=== PATIENT | male | born 1995 | race Caucasian/White ===

== ENCOUNTER 2019-08-22 12:36 | Emergency (ER) | payer SELFPAY ==
[2019-08-22 12:38] VITALS: BP 122/57; PULSE 79; RESP 15; TEMP 37.2; O2SAT 98
--- NOTE | 2019-08-22 13:12 | ED.GENADUL_ITS ---
Discharge Plan Disposition Patient Disposition: HOME Condition: Stable Discharge Details Chief Complaint: Orthopedic Clinical Impression: Laceration of right thumb Primary Care Provider: None,None ED Provider: Ailyn Marshall Home Meds and New Rx's Prescriptions: No Action No Known Home Meds RF: 0 Discharge Instructions Instructions: Laceration (ED) Additional Instructions: Keep wound clean and dry. Be sure to cover wound with dressing if risk of contamination. Keep the wound open to the air if you are resting at home to allow the edges to heal and dry. Once the glue falls off, you can cover the area with antibiotic ointment if you notice any redness or swelling. You will receive a call from care management regarding a follow-up appointment with a primary care doctor to establish care and for wound recheck. Return to the emergency department if you develop any worsening or concerning symptoms such as fever, worsening pain, redness or swelling. Discharge Data Discharge Date/Time-TO BE ENTERED AT DEPARTURE: 08/22/19 14:09 Discharge Physician: Ailyn Marshall Medical Decision Making 23-year-old male who presents with right thumb laceration sustained when caught thumb in a hammer [place] yesterday. Was seen at [facility] and glue applied but no x-ray done, now concerned about possible infection. He noted yellowish discharge. He was given a tetanus yesterday. He denies any known fever or new injury. There is a laceration noted on the volar aspect of right thumb with glue overlying wound. Edges not approximated and skin flap is whitish in discoloration consistent likely with tissue that has been exposed to moisture and not approximated. There are no signs of acute infection including cellulitis or abscess. There is no drainage noted. He has full range of motion of thumb without significant pain. He is neurovascular intact. Patient appears nontoxic. An x-ray was obtained and appears negative. Patient did not want to wait for final read. He was notified to be called with results if positive. Patient placed on care management list to arrange for follow-up appoint with the primary care doctor to establish care. He was advised to return here with any worsening symptoms. Medical Records Medical records reviewed: Yes I reviewed the patient's medical records. Imaging Data Radiologic Study: Radiologist's impression: XR Right Finger(s) Exam date and time: 08/22/2019 1:24 PM Age: 23 years old Clinical indication: Other: Crushed RT thumb, R/O acute FX TECHNIQUE: Imaging protocol: XR Right fingers. Views: Minimum 2 views. COMPARISON: No relevant prior studies available. FINDINGS: Bones/joints: No acute bony injury or malalignment in the right thumb. Soft tissues: Soft tissue swelling and laceration. IMPRESSION: Soft tissue swelling and laceration. HPI General Mode of arrival: ambulatory . Date/Time Provider Initiated Documentation: 08/22/19 12:48 . Limitations to Documentation: no limitations . Information obtained by: patient . History of Present Illness 23 year old M presents to the emergency department with the chief complaint of R thumb laceration/crush injury, Patient started experiencing this day(s) (1) and it has been constant. No relieving factors improve symptom(s), No exacerbating factors reported . Patient notes no other symptoms.. Patient did receive the following treatments prior to arrival, none Related Data Home Medications Medication Instructions Recorded Confirmed Unknown [No Known Home Meds] 08/22/19 08/22/19 Allergies Allergy/AdvReac Type Severity Reaction Status Date / Time ibuprofen AdvReac Intermediate Vomiting Unverified 08/22/19 12:51 General Stated Complaint: Orthopedic ARABELLA: 4 Review of Systems All systems reviewed & are unremarkable except as noted in HPI and below Constitutional Constitutional: Reports as per HPI, Denies chills and Denies fever(s) Eyes Eyes: Denies blurry vision ENT Ears, Nose, Mouth, and Throat: Denies dizziness, Denies sore throat and Denies throat swelling Cardiovascular Cardiovascular: Denies chest pain and Denies dyspnea Respiratory Respiratory: Denies cough and Denies dyspnea Gastrointestinal Gastrointestinal: Denies abdominal pain, Denies diarrhea and Denies vomiting Genitourinary Genitourinary: Denies hematuria and Denies dysuria Musculoskeletal Musculoskeletal: Denies back pain and Denies numbness Integumentary/Breasts Skin/Breast: Denies lesions and Denies rash Neurologic Neurologic: Denies dizziness, Denies focal weakness and Denies numbness Allergic/Immunologic Allergic/Immunologic: Denies throat swelling PFSH Social History Smoking/Tobacco Use Status: Current every day Alcohol Intake: never Drug use: Occasionally Substance use type: marijuana Do you feel safe at home: Yes Do you feel safe in your relationship?: Yes Exam Const General: cooperative, healthy appearing and no acute distress HENMT Head: normal to inspection Mouth: oral mucosae normal Eyes General: appearance normal, both eyes and all related structures Neck Neck: normal visual inspection Resp Effort & Inspection: normal respiratory effort and able to speak in complete sentences Cardio Rate: regular rate Skin General skin exam: no rashes or lesions noted Neuro General: alert, awake and oriented x3 Motor: muscle tone normal throughout and strength 5/5 throughout Sensory Exam: no sensory deficits noted Other: Full range of motion of right thumb at DIP and PIP joint. Extrem Other: Right thumb laceration noted on volar aspect of R thumb, 1.5cm in size, with white discoloration to skin flap. No surrounding erythema, edema, ecchymosis, fluctuance, induration, drainage or bleeding. Psych Appearance: grossly normal Affect: normal affect Course Vital Signs Vital signs: Vital Signs Temperature 99.0 F 08/22/19 12:38 Pulse 79 08/22/19 12:38 Respiratory Rate 15 08/22/19 12:38 Blood Pressure 122/57 L 08/22/19 12:38 Pulse Oximetry 98 08/22/19 12:38 Temperature 99.0 F 08/22/19 12:38 Temperature Source Temporal Artery Scan 08/22/19 12:38 Pulse 79 08/22/19 12:38 Respiratory Rate 15 08/22/19 12:38 Respiratory Effort Non-Labored 08/22/19 12:46 Blood Pressure 122/57 L 08/22/19 12:38 Pulse Oximetry 98 08/22/19 12:38 Oxygen Delivery Method Room Air 08/22/19 12:38 Oxygen Flow Rate 0 08/22/19 12:38 Pain Level 7 08/22/19 12:48
--- NOTE | 2019-08-22 13:24 | DI.RAD_ITS ---
EXAM: XR THUMB RT INDICATION: CRUSHED R THUMB, R/O ACUTE FRACTURE. COMPARISON: LEFT HAND COMPLETE from 12/25/2011 TECHNIQUE: 2D digital imaging was performed. FINDINGS: There is a soft tissue laceration at the ventral aspect of the thumb at the level of the distal phala nx. No foreign body or fracture is seen. Fixation plate is noted in the 4th metacarpal. IMPRESSION: Soft tissue laceration.
--- NOTE | 2019-08-22 14:57 | DI.VRAD_ITS ---
PROCEDURE INFORMATION: Exam: XR Right Finger(s) Exam date and time: 08/22/2019 1:24 PM Age: 23 years old Clinical indication: Other: Crushed RT thumb, R/O acute FX TECHNIQUE: Imaging protocol: XR Right fingers. Views: Minimum 2 views. COMPARISON: No relevant prior studies available. FINDINGS: Bones/joints: No acute bony injury or malalignment in the right thumb. Soft tissues: Soft tissue swelling and laceration. IMPRESSION: Soft tissue swelling and laceration. Dictated and Authenticated by: Javier El MD. Ordering:KEVIN Robertson MD
== END 2019-08-22 14:09 | disposition home or self-care (01) ==
PROVIDERS: Emergency Provider Physician Assistant
DX: S67.01XA Crushing injury of right thumb, initial encounter (principal); S61.011A Laceration without foreign body of right thumb without damage to nail, initial encounter; W23.0XXA Caught, crushed, jammed, or pinched between moving objects, initial encounter
CPT/HCPCS: 99283; 73140